=== PATIENT | female | born 1955 | race Caucasian/White ===

== ENCOUNTER 2023-03-10 08:36 | Emergency (ER) | payer MEDICARE ==
[~2023-03-10] VITALS: Ht 165.1 cm; Wt 85.7 kg
[~2023-03-10 08:36] MED LIST: ALPR.25 PO; ASPI81CH PO; ATOR40TA PO; CEFD300 PO; CHOL10002 PO; CLOP75 PO; HYDACE5 PO; HYDR1TAB94 PO; IBUP200; IBUP400 PO; IBUP800 PO; LEVFLO500 PO; MERIBIN5 MG PO; NICO21TP PO; NITR.4SL; Nitrostat0.4 MG SL; OMEP20ER PO; OMEP40CA12 PO; OXYACE5T PO; OXYC5 PO; PROM25 PO; TAMS.4ER PO
[2023-03-10 09:29] LABS: BASOPHILS ABSOLUTE AUTO 0.07 K/mm3 (0.00-0.23); BASOPHILS PERCENT AUTO 1 % (0-2); EOSINOPHILS ABSOLUTE AUTO 0.49 K/mm3 (0.00-0.68); EOSINOPHILS PERCENT AUTO 7 % (0-6); Hematocrit 44.2 % (33.0-51.0); Hemoglobin 14.4 g/dL (11.5-16.0); IMMATURE GRAN ABSOLUTE AUTO 0.02 K/mm3 (0.00-0.10); IMMATURE GRAN PERCENT AUTO 0 % (0-1); LYMPHOCYTES ABSOLUTE AUTO 2.23 K/mm3 (0.84-5.20); LYMPHOCYTES PERCENT AUTO 32 % (21-46); MONOCYTES ABSOLUTE AUTO 0.46 K/mm3 (0.16-1.47); MONOCYTES PERCENT AUTO 7 % (4-13); Mean Corpuscular HGB 30.9 pg (26.0-34.0); Mean Corpuscular HGB Conc 32.6 g/dL (31.5-36.5); Mean Corpuscular Volume 95 fL (80-100); Mean Platelet Volume 8.9 fL (9.1-12.4); NEUTROPHILS ABSOLUTE AUTO 3.68 K/mm3 (1.96-9.15); NEUTROPHILS PERCENT AUTO 53 % (41-73); Platelet Count 300 K/mm3 (150-400); RDW Coefficient Variation 13.3 % (11.7-14.2); RDW Standard Deviation 47.3 fL (35.1-46.3); Red Blood Cell Count 4.66 M/mm3 (3.80-5.20); White Blood Cell Count 6.95 K/mm3 (4.00-11.30)
[2023-03-10 09:53] LABS: Albumin, Blood 3.4 g/dL (3.4-5.0); Albumin/Globulin Ratio 1.2 (0.8-1.8); Bilirubin, Total 0.3 mg/dL (0.1-1.0); Bun/Creatinine Ratio 26.9 (12.0-20.0); Calcium, Blood 9.1 mg/dL (8.5-10.1); Creatinine, Blood 0.63 mg/dL (0.40-1.00); Globulin, Blood 2.9 g/dL (2.2-4.0); Potassium, Blood 3.9 mmol/L (3.5-5.5); Total Protein, Blood 6.3 g/dL (6.4-8.2)
[2023-03-10] MEDS ORDERED: ONDA4ODT MM (12:03)
[2023-03-10] MEDS ORDERED: MECL25 PO (12:03)
[2023-03-10 12:30] VITALS: BP 132/68
== END 2023-03-10 12:41 | disposition home or self-care (01) ==
LOC: ER 08:36
PROVIDERS: Emergency Medicine
DX: R42 Dizziness and giddiness (principal); R11.2 Nausea with vomiting, unspecified; I25.2 Old myocardial infarction; F17.200 Nicotine dependence, unspecified, uncomplicated
CPT/HCPCS: 70450; 80053; 85025; 93005; 93010; 96374; 99284-25; A9270; J2765